=== PATIENT | male | born 1970 | race Caucasian/White ===

== ENCOUNTER 2017-10-14 21:12 | Emergency (ER) | payer BC ==
[~2017-10-14] VITALS: Ht 160 cm; Wt 78.9 kg
[2017-10-14 21:15] VITALS: BP 131/89
[2017-10-14] MEDS ORDERED: OLANZapine 5 MG TAB PO SCH (22:20)
[2017-10-14] MEDS: NACL 0.9% 1,000 ML IV ONE (22:26)
[2017-10-14] MEDS: ACETAMINOPHEN 325 MG TAB PO ONE (22:26)
[2017-10-14] MEDS ORDERED: OLANZapine 5 MG TAB ONE (22:35)
[2017-10-14 22:55] LABS: HEMATOCRIT 47.7 % (36-52); MEAN CORPUSCULAR HEMOGLOBIN 29 pg (27-31); MEAN CORPUSCULAR HGB CONC 34 g/dL (33-37); MEAN CORPUSCULAR VOLUME 86.6 fL (80-94); PLATELET COUNT (AUTO) 195 K/uL (140-450); RED BLOOD CELL COUNT(AUTO) 5.51 MIL/uL (4.20-6.10); RED CELL DISTRIBUTION WIDTH 13.4 % (11.6-13.7); WHITE BLOOD COUNT (AUTO) 7.8 K/uL (4.8-10.8)
[2017-10-14 23:16] LABS: CARBON DIOXIDE 31.9 mmol/L (21-32); CREATININE 1.3 mg/dL (0.7-1.3); POTASSIUM 3.9 mmol/L (3.5-5.1)
[2017-10-14 23:24] LABS: LYMPHOCYTES % (MANUAL) 10 % (20-46); MONOCYTES % (MANUAL) 13 % (5-12)
[2017-10-14 23:27] LABS: ALBUMIN 3.4 g/dL (3.4-5.0); MAGNESIUM 2.3 mg/dL (1.8-2.4); PHOSPHORUS 3.8 mg/dL (2.5-4.9); TOTAL BILIRUBIN 0.6 mg/dL (0.0-1.0)
[2017-10-15] MEDS: NACL 0.9% 1,000 ML IV ONE (00:36)
[2017-10-15 01:32] VITALS: BP 125/75
[2017-10-15 04:40] LABS: APPEARANCE,URINE CLEAR (CLEAR); BILIRUBIN,URINE NEGATIVE (NEGATIVE); BLOOD, URINE NEGATIVE (NEGATIVE); COLOR,URINE YELLOW (YELLOW); LEUKOCYTE ESTERASE ,URINE NEGATIVE (NEGATIVE); NITRITE, URINE NEGATIVE (NEGATIVE); PH,URINE 5.5 (5.0-9.0); UGLUCOSE NEGATIVE (NEGATIVE)
[2017-10-15 04:54] LABS: RBC,URINE 0-5 (RARE) /HPF (0-5); WBC,URINE 0-5 (RARE) /HPF (0-5)
== END 2017-10-15 01:32 | disposition home or self-care (01) ==
LOC: MED 21:12
DX: B34.9 Viral infection, unspecified (principal); R55 Syncope and collapse; R94.31 Abnormal electrocardiogram [ECG] [EKG]; J45.909 Unspecified asthma, uncomplicated
CPT/HCPCS: 36415; 71045; 80053; 81001; 83605; 83735; 84100; 84484; 85025; 87804; 93005; 96360; 96361; 99285; J7030; Q0092